=== PATIENT | female | born 1955 | race Caucasian/White ===

== ENCOUNTER → 2017-08-24 | Outpatient (CLI) | payer MEDICARE ==
[2012-09-08 14:15] VITALS: BP 128/80
[~2017-08-24] MED LIST: HCTZ
== END ==
LOC: RAD 10:00
DX: Z12.31 Encounter for screening mammogram for malignant neoplasm of breast (principal)
CPT/HCPCS: G0202

== ENCOUNTER → 2017-12-06 | Outpatient (CLI) | payer MEDICARE ==
[2012-09-08 14:15] VITALS: BP 128/80
[2017-12-06 15:02] LABS: BASO # 0.1 (0.02-0.10); EOS # 0.1 (0.04-0.40); EOS % 1.1 % (1.0-5.0); HEMATOCRIT 42.8 % (37.0-47.0); HEMOGLOBIN 14.8 g/dL (12.5-16.0); LYMPH# 1.6 (1.50-4.00); MEAN CELL VOLUME 89 fl (78-100); MEAN CORPUSCULAR HEMOGLOBIN 31 pg (27-31); MEAN CORPUSCULAR HGB CONC 35 g/dL (33-37); MEAN PLATELET VOLUME 10.8 fl (7.4-10.4); MONO # 0.5 (0.20-0.80); NEU # 5.2 (1.40-6.50); PLATELET COUNT 256 K/mm3 (130-400); RED BLOOD COUNT 4.83 M/mm3 (4.10-5.30); RED CELL DISTRIBUTION WIDTH 12.8 % (11.5-14.5); WHITE BLOOD COUNT 7.5 K/mm3 (4.8-10.8)
[2017-12-06 15:19] LABS: ALBUMIN 4.3 g/dL (3.5-5.0); BUN/CREATININE RATIO 27.1 (6.0-26.0); CALCIUM 9.5 mg/dL (8.4-10.2); POTASSIUM 4.1 mmol/L (3.6-5.0); TOTAL BILIRUBIN 0.8 mg/dL (0.2-1.3); TOTAL PROTEIN 7.3 g/dL (6.3-8.2)
[2017-12-06 16:55] LABS: URINE APPEARANCE CLEAR; URINE BILIRUBIN NEGATIVE (NEGATIVE); URINE BLOOD NEGATIVE (NEGATIVE); URINE COLOR YELLOW; URINE KETONE 2+ (NEGATIVE); URINE LEUKOCYTE ESTERASE NEGATIVE (NEGATIVE); URINE NITRATE NEGATIVE (NEGATIVE); URINE PROTEIN(semi-quant) NEGATIVE (NEGATIVE); URINE UROBILINOGEN NORMAL (NORMAL)
[2017-12-06 16:56] LABS: URINE MUCUS PRESENT (NOT PRESENT)
== END ==
LOC: RAD 14:00
PROVIDERS: Nurse Practitioner Family
DX: R10.11 Right upper quadrant pain (principal); E11.9 Type 2 diabetes mellitus without complications
CPT/HCPCS: Q9967

== ENCOUNTER → 2018-09-20 | Outpatient (CLI) | payer MEDICARE ==
[2012-09-08 14:15] VITALS: BP 128/80
== END ==
LOC: MAMMO 04-26 14:30
DX: Z12.31 Encounter for screening mammogram for malignant neoplasm of breast (principal)

== ENCOUNTER → 2019-04-04 | Outpatient (CLI) | payer MEDICARE ==
[2012-09-08 14:15] VITALS: BP 128/80
[2019-04-04 13:36] LABS: ALBUMIN 4.5 g/dL (3.4-4.8); POTASSIUM 4.9 mmol/L (3.5-5.1)
[2019-04-04 13:37] LABS: CALCIUM 10.7 mg/dL (8.3-10.5)
[2019-04-04 13:39] LABS: TOTAL PROTEIN 7.4 g/dL (6.2-8.1)
[2019-04-04 13:40] LABS: TOTAL BILIRUBIN 0.6 mg/dL (0.2-1.2)
== END ==
LOC: RAD 13:00
PROVIDERS: Family Medicine
DX: R91.8 Other nonspecific abnormal finding of lung field (principal)
CPT/HCPCS: Q9967

== ENCOUNTER → 2020-07-04 | Outpatient (CLI) | payer MEDICARE ==
[2012-09-08 14:15] VITALS: BP 128/80
== END ==
LOC: RAD 11:00
DX: R91.8 Other nonspecific abnormal finding of lung field (principal)

== ENCOUNTER → 2020-07-23 | Outpatient (CLI) | payer MEDICARE ==
[2012-09-08 14:15] VITALS: BP 128/80
== END ==
LOC: MAMMO 15:00
DX: Z12.31 Encounter for screening mammogram for malignant neoplasm of breast (principal)

== ENCOUNTER → 2020-07-23 | Outpatient (CLI) | payer MEDICARE ==
[2012-09-08 14:15] VITALS: BP 128/80
== END ==
LOC: RAD 15:03 → MAMMO 16:00
DX: Z13.820 Encounter for screening for osteoporosis (principal); Z78.0 Asymptomatic menopausal state; M85.852 Other specified disorders of bone density and structure, left thigh

== ENCOUNTER → 2020-10-10 | Outpatient (CLI) | payer MEDICARE ==
[2012-09-08 14:15] VITALS: BP 128/80
[2020-10-10 13:16] LABS: BASO # 0.1 (0.02-0.10); EOS # 0.2 (0.04-0.40); EOS % 2.9 % (1.0-5.0); HEMATOCRIT 42.4 % (37.0-47.0); HEMOGLOBIN 13.3 g/dL (12.5-16.0); LYMPH# 1.7 (1.50-4.00); MEAN CELL VOLUME 97 fl (78-100); MEAN CORPUSCULAR HEMOGLOBIN 31 pg (27-31); MEAN CORPUSCULAR HGB CONC 31 g/dL (33-37); MEAN PLATELET VOLUME 9.7 fl (7.4-10.4); MONO # 0.5 (0.20-0.80); NEU # 5.2 (1.40-6.50); PLATELET COUNT 233 K/mm3 (130-400); RED BLOOD COUNT 4.36 M/mm3 (4.10-5.30); RED CELL DISTRIBUTION WIDTH 13.7 % (11.5-14.5); WHITE BLOOD COUNT 7.7 K/mm3 (4.8-10.8)
[2020-10-10 13:25] LABS: ALBUMIN 4.2 g/dL (3.4-4.8)
[2020-10-10 13:26] LABS: POTASSIUM 4.3 mmol/L (3.5-5.1)
[2020-10-10 13:28] LABS: TOTAL PROTEIN 6.8 g/dL (6.2-8.1)
[2020-10-10 13:30] LABS: TOTAL BILIRUBIN 0.4 mg/dL (0.2-1.2)
[2020-10-10 13:35] LABS: URINE APPEARANCE CLEAR; URINE BILIRUBIN NEGATIVE (NEGATIVE); URINE BLOOD NEGATIVE (NEGATIVE); URINE COLOR YELLOW; URINE GLUCOSE NEGATIVE (NEGATIVE); URINE KETONE NEGATIVE (NEGATIVE); URINE LEUKOCYTE ESTERASE NEGATIVE (NEGATIVE); URINE NITRATE NEGATIVE (NEGATIVE); URINE PROTEIN(semi-quant) TRACE mg/dL (NEGATIVE); URINE UROBILINOGEN NORMAL (NORMAL); URINE WBC 0-1 /hpf (0-3)
== END ==
LOC: RAD 12:51 → LAB 12:51
PROVIDERS: Family Medicine
DX: I63.9 Cerebral infarction, unspecified (principal)

== ENCOUNTER → 2021-09-17 | Outpatient (CLI) | payer MEDICARE ==
[2021-09-17 15:04] LABS: BASO # 0.13 K/mm3 (0.02-0.10); EOS # 0.11 K/mm3 (0.04-0.40); EOS % 1.5 % (1.0-5.0); HEMATOCRIT 42.9 % (37.0-47.0); HEMOGLOBIN 13.7 g/dL (12.5-16.0); LYMPH# 1.87 K/mm3 (1.50-4.00); MEAN CELL VOLUME 97 fl (78-100); MEAN CORPUSCULAR HEMOGLOBIN 31 pg (27-31); MEAN CORPUSCULAR HGB CONC 32 g/dL (33-37); MEAN PLATELET VOLUME 9.4 fl (7.4-10.4); MONO # 0.53 K/mm3 (0.20-0.80); NEU # 4.91 K/mm3 (1.40-6.50); PLATELET COUNT 281 K/mm3 (130-400); RED BLOOD COUNT 4.43 M/mm3 (4.10-5.30); WHITE BLOOD COUNT 7.6 K/mm3 (4.8-10.8)
[2021-09-17 15:15] LABS: ALBUMIN 4.5 g/dL (3.4-4.8)
[2021-09-17 15:16] LABS: POTASSIUM 4.5 mmol/L (3.5-5.1)
[2021-09-17 15:17] LABS: CALCIUM 10.3 mg/dL (8.3-10.5)
[2021-09-17 15:18] LABS: TOTAL PROTEIN 8.1 g/dL (6.2-8.1)
[2021-09-17 15:20] LABS: TOTAL BILIRUBIN 0.4 mg/dL (0.2-1.2)
== END ==
LOC: LAB 14:50
PROVIDERS: Nurse Practitioner Family
DX: N10 Acute pyelonephritis (principal)

== ENCOUNTER → 2021-10-06 | Outpatient (CLI) | payer MEDICARE | LOC: MAMMO 13:00 | DX: Z12.31 Encounter for screening mammogram for malignant neoplasm of breast (principal) ==